=== PATIENT | female | born 1960 ===

== ENCOUNTER 2017-04-01 17:15 | Emergency (ER) | payer SELFPAY ==
[2017-04-01 17:15] VITALS: BMI 19.1
[2017-04-01 17:33] VITALS: BP 124/84; PULSE 100; RESP 16; TEMP 98; O2SAT 100
--- NOTE | 2017-04-01 17:44 | ED PDOC ---
HPI: Back Time Seen by Provider: 04/01/17 17:35 Chief Complaint (Nursing): Back Pain Chief Complaint (Provider): Back pain History Per: Patient History/Exam Limitations: no limitations Onset/Duration Of Symptoms: Days (1) Current Symptoms Are (Timing): Still Present Additional Complaint(s): Patient is a 57 y/o female with no significant medical history presenting to the emergency department for lower back pain that started today after going down the stairs. Reports that the pain radiates to her left leg and is worse when sitting down. Denies taking any medication for relief, history of back problems, numbness, tingling, trauma, or other complaints. PCP: none provided. Past Medical History Reviewed: Historical Data, Nursing Documentation, Vital Signs Vital Signs: Last Vital Signs Temp 98.0 F 04/01/17 17:32 Pulse 100 H 04/01/17 17:32 Resp 16 04/01/17 17:32 BP 124/84 04/01/17 17:32 Pulse Ox 100 04/01/17 17:32 - Medical History PMH: Denies: Chronic Kidney Disease - Family History Family History: States: Unknown Family Hx - Home Medications Home Medications: Ambulatory Orders Medication Instructions Recorded Omeprazole [Omeprazole] 20 mg PO DAILY 01/07/16 Azithromycin [Zithromax] 250 mg PO DAILY #4 tab 03/15/16 Naproxen [Naprosyn] 1 tab PO BID PRN #25 tab 04/01/17 diaZEpam [Valium] 2 mg PO Q8 PRN #10 tab 04/01/17 - Allergies Allergies/Adverse Reactions: Allergies Allergy/AdvReac Type Severity Reaction Status Date / Time No Known Allergies Allergy Verified 03/15/16 11:04 Review of Systems ROS Statement: Except As Marked, All Systems Reviewed And Found Negative Musculoskeletal: Positive for: Back Pain (lower, radiating to left leg) Neurological: Negative for: Numbness (or tingling) Physical Exam - Reviewed Nursing Documentation Reviewed: Yes Vital Signs Reviewed: Yes - Physical Exam Appears: Positive for: Non-toxic Head Exam: Positive for: ATRAUMATIC, NORMAL INSPECTION, NORMOCEPHALIC Skin: Positive for: Normal Color, Warm, Dry Eye Exam: Positive for: Normal appearance Neck: Positive for: Normal Cardiovascular/Chest: Positive for: Regular Rate, Rhythm. Negative for: Murmur Respiratory: Positive for: Normal Breath Sounds. Negative for: Accessory Muscle Use, Respiratory Distress Back: Positive for: Other (paraspinal tenderness, L > R) Extremity: Positive for: Normal ROM Neurologic/Psych: Positive for: Alert, Oriented (x3) - ECG O2 Sat by Pulse Oximetry: 100 (RA) Pulse Ox Interpretation: Normal Medical Decision Making Medical Decision Making: Time: 17:53 Initial impression: Lower back pain Initial plan: Valium 5 mg PO Toradol 60 mg IM 18:45 Patient reevaluated and reports feeling better, pain is improving. She is now able to sit and stand more comfortably. She is ambulatory with minimal signs of discomfort. Advise rest, can apply heat to area and to take analgesics as needed. ~ Scribe Attestation: Documented by Heidy Pandya, acting as a scribe for JAVON Watson. Provider Scribe Attestation: All medical record entries made by the Scribe were at my direction and personally dictated by me. I have reviewed the chart and agree that the record accurately reflects my personal performance of the history, physical exam, medical decision making, and the department course for this patient. I have also personally directed, reviewed, and agree with the discharge instructions and disposition. Disposition - Clinical Impression Clinical Impression: Back strain, Sciatica Counseled Patient/Family Regarding: Diagnosis, Need For Followup, Rx Given - Disposition Disposition: Routine/Home Disposition Time: 18:48 Condition: IMPROVED Additional Instructions: Vaya a hearn mdico o la clnica en 2-5 gandhi sin falta, para mas evaluacin. [place] los medicamentos rhonda indicado. Volver a la tomy de emergencia en cualquier momento si los sntomas persisten o empeoran. 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
== END 2017-04-01 18:58 | disposition home or self-care (01) ==
LOC: H.ER 17:15
DX: M54.30 Sciatica, unspecified side (principal)
CPT/HCPCS: 96372; 99282; J1885

== ENCOUNTER 2017-08-11 08:54 | Emergency (ER) | payer SELFPAY ==
[2017-08-11 08:54] VITALS: BMI 19.1
[2017-08-11 09:13] VITALS: BP 136/81; PULSE 84; RESP 16; TEMP 97; O2SAT 96
--- NOTE | 2017-08-11 09:27 | ED PDOC ---
HPI: Headache Time Seen by Provider: 08/11/17 09:04 Chief Complaint (Nursing): Headache Chief Complaint (Provider): Headache History Per: Patient History/Exam Limitations: no limitations Onset/Duration Of Symptoms: Days (x 2 months) Current Symptoms Are (Timing): Still Present Additional Complaint(s): [place] is a 57 y/o female with no past medical history who presents to the ED complaining of a headache for the past 2 months. She describes the headache as a continuous, throbbing pain mostly on the left side that has been getting worse over the last 2 days. Patient states she usually takes tylenol for the pain which helps, but it did not help her last night, prompting her visit. She denies nausea, vomiting, fever, chest pain, abdominal pain, or vision changes. She also denies thunderclap, sudden onset, or worst headache of her life. She had an appointment at the clinic today but it was cancelled due to snow. PMD: Clinic Past Medical History Reviewed: Historical Data, Nursing Documentation, Vital Signs Vital Signs: Last Vital Signs Temp 97.0 F L 08/11/17 09:10 Pulse 84 08/11/17 09:10 Resp 16 08/11/17 09:10 BP 136/81 08/11/17 09:10 Pulse Ox 96 08/11/17 09:10 - Medical History PMH: No Chronic Diseases Denies: Chronic Kidney Disease - Surgical History Surgical History: No Surg Hx - Family History Family History: States: Unknown Family Hx - Home Medications Home Medications: Ambulatory Orders Medication Instructions Recorded Omeprazole [Omeprazole] 20 mg PO DAILY 01/07/16 Azithromycin [Zithromax] 250 mg PO DAILY #4 tab 03/15/16 Naproxen [Naprosyn] 1 tab PO BID PRN #25 tab 04/01/17 diaZEpam [Valium] 2 mg PO Q8 PRN #10 tab 04/01/17 Aspirin/Acetaminophen/Caffeine 1 each PO TID PRN #20 tablet 08/11/17 [Excedrin Migraine Caplet] - Allergies Allergies/Adverse Reactions: Allergies Allergy/AdvReac Type Severity Reaction Status Date / Time No Known Allergies Allergy Verified 08/11/17 09:10 Review of Systems ROS Statement: Except As Marked, All Systems Reviewed And Found Negative Constitutional: Negative for: Fever Eyes: Negative for: Vision Change Cardiovascular: Negative for: Chest Pain Gastrointestinal: Negative for: Nausea, Vomiting, Abdominal Pain, Diarrhea Neurological: Positive for: Headache (throbbing, mostly left sided) Physical Exam - Reviewed Nursing Documentation Reviewed: Yes Vital Signs Reviewed: Yes - Physical Exam Appears: Positive for: Well, Non-toxic, No Acute Distress Head Exam: Positive for: ATRAUMATIC, NORMAL INSPECTION, NORMOCEPHALIC Skin: Positive for: Normal Color, Warm, Dry Eye Exam: Positive for: EOMI, Normal appearance, PERRL Neck: Positive for: Normal, Painless ROM, Supple Cardiovascular/Chest: Positive for: Regular Rate, Rhythm. Negative for: Murmur Respiratory: Positive for: Normal Breath Sounds. Negative for: Respiratory Distress Pulses-Radial (L): 2+ Pulses-Radial (R): 2+ Gastrointestinal/Abdominal: Positive for: Normal Exam, Soft. Negative for: Tenderness Back: Positive for: Normal Inspection. Negative for: L CVA Tenderness, R CVA Tenderness, Vertebral Tenderness Extremity: Positive for: Normal ROM. Negative for: Pedal Edema, Deformity Neurologic/Psych: Positive for: Alert, Oriented. Negative for: Motor/Sensory Deficits - Laboratory Results Result Diagrams: 08/11/17 09:40 08/11/17 09:40 - ECG O2 Sat by Pulse Oximetry: 96 (RA) Pulse Ox Interpretation: Normal - Progress Re-evaluation Time: 12:15 Condition: Re-examined, Improved Medical Decision Making Medical Decision Making: Time: 9:23 Initial Impression: Headache for 2 months --Differential diagnoses include primary headache such as migraine, tension headache; also secondary headache due to brain tumor, hypertension. Due to a negative history of hypertension and no hypertension in ED provider does not believe headache is caused by htn. Because the headache has been ongoing for 2 months with no changes, no suspicison for SAH. --Migraine, rule out brain tumor Initial Plan: --CT Head w/o Contrast --BMP --CBC --Reglan --Toradol --Blood Glucose Time: 10:47 CT HEAD FINDINGS: HEMORRHAGE: No intracranial hemorrhage. BRAIN: Normal lazaro-white matter differentiation and density are appreciated throughout the cerebrum and cerebellum with the brainstem appearing unremarkable as well. There is no mass effect. There is no suspicious extra-axial fluid collection and the midline brain anatomy appears diffusely unremarkable. VENTRICLES: Cavum septum pellucidum vergae normal variant noted at the 3rd ventricle. No hydrocephalus. CALVARIUM: Unremarkable. PARANASAL SINUSES: Unremarkable as visualized. No significant inflammatory changes. MASTOID AIR CELLS: Unremarkable as visualized. No inflammatory changes. OTHER FINDINGS: None. IMPRESSION: Unremarkable unenhanced head CT. Follow-up CT or MRI are available as clinically warranted. Scribe Attestation: Documented by Toribio Ramirez, acting as a scribe for Dr. Jus Ridley MD. Provider Scribe Attestation: All medical record entries made by the Scribe were at my direction and personally dictated by me. I have reviewed the chart and agree that the record accurately reflects my personal performance of the history, physical exam, medical decision making, and the department course for this patient. I have also personally directed, reviewed, and agree with the discharge instructions and disposition. Disposition - Clinical Impression Clinical Impression: Headache, Chronic headache disorder - Patient ED Disposition Is Patient to be Admitted: No Doctor Will See Patient In The: Office Counseled Patient/Family Regarding: Studies Performed, Diagnosis, Need For Followup - Disposition Referrals: [facility] [Outside] Disposition: Routine/Home Disposition Time: 12:23 Condition: GOOD Additional Instructions: Take medications for headache. Return for worsening or new symptoms. Follow up with your PCP in 2-3 days. Prescriptions: Aspirin/Acetaminophen/Caffeine [Excedrin Migraine Caplet] 1 each PO TID PRN #20 tablet PRN Reason: Headache Instructions: Headache, Adult (DC) Print Language: MALDIVIAN
[2017-08-11 10:00] LABS: BASO % 0.3 % (0.0-2.0); EOS # 0.1 K/uL (0.0-0.7); EOS % 2.1 % (0.0-4.0); HEMOGLOBIN 13.9 g/dL (12.0-16.0); LYMPH # 1.4 K/uL (1.0-4.3); LYMPH % 23.3 % (20.0-40.0); MEAN CELL VOLUME 86.8 fl (81.0-99.0); MEAN CORPUSCULAR HEMOGLOBIN 29.6 pg (27.0-31.0); MEAN CORPUSCULAR HGB CONC 34.1 g/dL (33.0-37.0); MEAN PLATELET VOLUME 9.2 fl (7.2-11.7); MONO # 0.4 K/uL (0.0-0.8); MONO % 7.3 % (0.0-10.0); NEUT # 4.1 K/uL (1.8-7.0); NRBC % 0.1 % (0.0-0.0); RBC 4.7 Mil/uL (3.80-5.20); RED CELL DISTRIBUTION WIDTH 12.9 % (11.5-14.5); WHITE BLOOD COUNT 6.1 K/uL (4.8-10.8)
[2017-08-11 10:05] LABS: CALCIUM 8.9 mg/dL (8.4-10.2); GFR AFRICAN-AMERICAN > 60; GFR NON-AFRICAN AMERICAN > 60
[2017-08-11 10:23] LABS: BLOOD UREA NITROGEN 13 mg/dl (7-17)
--- NOTE | 2017-08-11 10:48 | CT ---
PROCEDURE: CT HEAD WITHOUT CONTRAST. HISTORY: headache for 2 months COMPARISON: None available. TECHNIQUE: Axial computed tomography images were obtained through the head/brain without intravenous contrast. Radiation dose: Total exam DLP = 774.77 mGy-cm. This CT exam was performed using one or more of the following dose reduction techniques: Automated exposure control, adjustment of the mA and/or kV according to patient size, and/or use of iterative reconstruction technique. FINDINGS: HEMORRHAGE: No intracranial hemorrhage. BRAIN: Normal lazaro-white matter differentiation and density are appreciated throughout the cerebrum and cerebellum with the brainstem appearing unremarkable as well. There is no mass effect. There is no suspicious extra-axial fluid collection and the midline brain anatomy appears diffusely unremarkable. VENTRICLES: Cavum septum pellucidum vergae normal variant noted at the 3rd ventricle. No hydrocephalus. CALVARIUM: Unremarkable. PARANASAL SINUSES: Unremarkable as visualized. No significant inflammatory changes. MASTOID AIR CELLS: Unremarkable as visualized. No inflammatory changes. OTHER FINDINGS: None. IMPRESSION: Unremarkable unenhanced head CT. Follow-up CT or MRI are available as clinically warranted.
== END 2017-08-11 12:25 | disposition home or self-care (01) ==
LOC: H.ER 08:54
DX: R51 Headache (principal)
CPT/HCPCS: 70450; 80048; 82948; 85025; 96374; 96375; 99285; J1885; J2765